=== PATIENT | male | born 1940 | race Two or more races ===

== ENCOUNTER 2020-09-25 14:34 | Emergency (ER) | payer OTHER ==
[~2020-09-25] VITALS: Ht 170.2 cm; Wt 54.4 kg
[2020-09-25] MEDS ORDERED: ACETAMINOPHEN650 M2 PO (21:22)
== END 2020-09-25 22:44 | disposition home or self-care (01) ==
LOC: ER 14:34
DX: S00.83XA Contusion of other part of head, initial encounter (principal); S30.0XXA Contusion of lower back and pelvis, initial encounter; M54.2 Cervicalgia; R07.89 Other chest pain; G45.8 Other transient cerebral ischemic attacks and related syndromes; W18.09XA Striking against other object with subsequent fall, initial encounter; Y93.89 Activity, other specified; Y92.89 Other specified places as the place of occurrence of the external cause; Y99.8 Other external cause status

== ENCOUNTER 2020-10-13 13:35 | Emergency (ER) | payer OTHER ==
[~2020-10-13] VITALS: Ht 167.6 cm; Wt 63.5 kg
[~2020-10-13 13:35] MED LIST: ACETAMINOPHEN650 M2 PO
[2020-10-13] MEDS ORDERED: INBRIJA42 MG (13:58)
[2020-10-13] MEDS ORDERED: LIPITOR80 MG (13:59)
[2020-10-13] MEDS ORDERED: AMLODIPINE-OLM1 EAC1 (14:00)
[2020-10-13] MEDS ORDERED: PLAVIX75 MG (14:00)
[2020-10-13] MEDS ORDERED: GLIMEPIRIDE4 MG (14:00)
[2020-10-13] MEDS ORDERED: COZAAR25 MG (14:01)
[2020-10-13] MEDS ORDERED: DICLOFENAC SODI50 MG PO (15:38)
[2020-10-13] MEDS ORDERED: MUPIROCIN1 G1 TOP (15:38)
== END 2020-10-13 17:11 | disposition home or self-care (01) ==
LOC: ER 13:35
DX: S93.491A Sprain of other ligament of right ankle, initial encounter (principal); S80.211A Abrasion, right knee, initial encounter; S60.811A Abrasion of right wrist, initial encounter; S70.01XA Contusion of right hip, initial encounter; W18.09XA Striking against other object with subsequent fall, initial encounter; Y93.89 Activity, other specified; Y92.018 Other place in single-family (private) house as the place of occurrence of the external cause; Y99.8 Other external cause status

== ENCOUNTER 2020-11-01 03:09 | Inpatient (IN) | payer OTHER ==
[~2020-11-01] VITALS: Ht 165.1 cm; Wt 54.4 kg
[~2020-11-01 03:09] MED LIST changes: +AMLODIPINE-OLM1 EAC1 PO; +COZAAR25 MG PO; +DICLOFENAC SODI50 MG PO; +GLIMEPIRIDE4 MG PO; +INBRIJA42 MG PO; +LIPITOR80 MG PO; +MUPIROCIN1 G1 TOP; +PLAVIX75 MG PO
--- NOTE | 2020-11-01 03:30 | NUR ---
0325 SE RECIBE PACIENTE LETARGICO CON DIFICULTAD RESPIRATORIA NOTORIA, RETRAYENDO ABDOMINAL, PALIDO Y SATURANDO OXIGENO MANUAL ENTRE 90-92%. SE CONECTO A MONITOR CARDIACO Y OXIMETRIA DE PULSO. DR. GEORGE EVALUO A PACIENTE. SE REALIZA CANALIZACIONES BAJO MEDIDAS ASEPTICAS EN BRAZO DERECHO POR MR. GALE. SE REALIZARON MUESTRAS DE LABORATORIO BAJO MEDIDAS. PERSONAL DE TERAPIA RESPIRATORIA LE REALIZO ABG A PACIENTE. LUEGO DE RESULTADOS MEDICO ORDENO COLOCAR NON REBREATHING MASK AL 100%. SE COLOCO LA MISMA POR EL PERSONAL DE TERAPIA RESPIRATORIA. PACIENTE CON HIPOTENSION 90/40MMHG, MEDICO ORDENO ADMINISTRAR PUSH DE 0.9 NSS DE 250ML Y LUEGO CONTINUAR CON ASHLYN 0.9 NSS DE 1,OOOML BAJANDO A 150ML/HR. 0330 DEBIDO A QUE LAS PRESIONES NO MEJORABAN MANUAL 90/35MMHG MEDICO DECIDE AMDINITRAR DRIP DE LEVOPHED 4MG/250ML D5W A BAJAR A 10ML/HR. SE ADMINISTRA EL MISMO.
--- NOTE | 2020-11-01 03:33 | NUR ---
SE RECIBE PTE EN ESTADO ESTUPOROSO EN COMPANIA DE NG HIJA QUIEN REFIERE QUE EL PTE SE ENCUENTRA INAPETENTE E HIPOACTIVO DESDE HACE VARIOS [place]MAN SHAKIR QUE EN EL SAMUEL DE HOY EMPEORO. SE OBSERVA A PTE CLINICAMENTE ENFERMO, EN ESTADO DE CAQUEXIA, CON DIFICULTAD RESPIRATORA (RESPIRACIONES ABDOMINALES) Y CON TEMPERATURA DE 101.0.
--- NOTE | 2020-11-01 04:45 | NUR ---
0340 SE AUMENTO DRIP DE LEVOPHED A 14ML/HR POR BP MANUAL 90/30MMHG. 0415 SE REALIZO CULTIVO DE DEDE ORDENADO POR BAJO MEDIDAS ASEPTICAS. SE REALIZO CAMBIO DE PANAL, PACIENTE CON EVACUACION PASTOSA CATRACHO [facility]. SE INSERTO SONDA URINARIA BAJO MEDIDAS ESTERILES PACIENTE ELIMINO 75ML/HR COLOR AMARILLO. SE AUMENTO DRIP DE LEVOPHED DEBIDO A QUE EL PACIENTE TIENE BP MANUAL EN 100/25MMHG. SE REALIZO OCCULT BLOOD BAJO MEDIDAS ASEPTICAS. 0445 SE REALIZO MUESTRA DE CULTIVO DE DEDE BAJO MEDIDAS ASETPICAS. SE ADMINISTRO MEDICA MEDICAMENTO ORDENADO POR . 0525 SE REALIZO CULTIVO DE ULCERA DE PIE DERECHO. SE OBSERVA HARVEY ULCERAS EN PIE DERECHO. SE COLOCAN GASAS EN LAS MISMAS PORQUE ESTAN SUPURANDO. PACIENTE TIENE AREA DE PRESION EN MONTY DE PIE SAMIRA Y CICATRIZ EN AREA SACRAL POR ULCERA. SE OBSERVA ABRACION EN PIERNA DERECHA. SE MANTIENE BAJO OBSERVACION POR CAMBIOS SIGNIFICATIVOS.
--- NOTE | 2020-11-01 08:04 | NUR ---
0700 SE RECIBE PACIENTE ESTUPOROSO CON RESPUESTA A ESTIMULO DE DOLOR, NO RESPONDE A LLAMADO EN LA UNIDAD DE CRITICO CONECTAD A MONITOR CARDIACO CON RITMO CARDIACO REGULAR HR 88 LAT/MIN, OXIMETRIA DE PULSO AL MOMENTO CAPTURANDO 100% Y ASISTIDO POR NON-REBREATHING MASK AL 100%. PACIENTE SE OBSERVA PRESION EN EL AREA SACRAL, ULCERA EN MONTY Y 5TO DEDO PIE RT. SE OBSERVA IVF'S PATENTE MERI DE EDEMA Y ENROJECIMIENTO BAJANDO UN LEVOPHED 4MG/250ML @ 30ML/HR Y .9NSS @ 75ML/HR. PENDIENTE A DISPONIBILIDAD DE 4 U PRBC'S REQUISADAS EN BANCO DE DEDE AUXILIO MUTUO. PACIENTE CON REACCION PUPILAR EN AMBOS OJOS. SE PALPA ABDOMEN BLANDO Y DEPRESIBLE. SONDA URINARIA PATENTE EL CUAL DRENA ORINA COLOR AMARILLO INTENSO. PENDIENTE CONSULTA CON DR. CARMEN OSORIO Y SERVICIOS SOCIALES. SE MANTIENE BAJO OBSERVACION POR CAMBIOS SIGNIFICATIVOS. 0800 SE TITULA LEVOPHED 4MG/250ML @ 4ML/HR.
== END 2020-11-14 18:26 | disposition left against medical advice (07) | DRG 871 ==
LOC: ER 03:09 → SURH 10:12 → ICU-2 10:12 → MEDI 11-09 16:22 → SURH 11-09 17:02
PROVIDERS: ADMIT Internal Medicine; ATTEND Internal Medicine
PROC: 4A033R1 Measurement of Arterial Saturation, Peripheral, Percutaneous Approach (ICD-10-PCS; 2020-11-01)
PROC: 30233N1 Transfusion of Nonautologous Red Blood Cells into Peripheral Vein, Percutaneous Approach (ICD-10-PCS; 2020-11-01)
PROC: B54DZZZ Ultrasonography of Bilateral Lower Extremity Veins (ICD-10-PCS; 2020-11-01)
PROC: BW28ZZZ Computerized Tomography (CT Scan) of Head (ICD-10-PCS; 2020-11-02)
PROC: 02HV33Z Insertion of Infusion Device into Superior Vena Cava, Percutaneous Approach (ICD-10-PCS; 2020-11-02)
PROC: B24BZZZ Ultrasonography of Heart with Aorta (ICD-10-PCS; 2020-11-03)
PROC: 4A12X4Z Monitoring of Cardiac Electrical Activity, External Approach (ICD-10-PCS; principal; 2020-11-09)
DX: A41.9 Sepsis, unspecified organism (principal); R57.1 Hypovolemic shock; E43 Unspecified severe protein-calorie malnutrition; I21.A1 Myocardial infarction type 2; J69.0 Pneumonitis due to inhalation of food and vomit; D62 Acute posthemorrhagic anemia; G93.1 Anoxic brain damage, not elsewhere classified; E86.0 Dehydration; I25.10 Atherosclerotic heart disease of native coronary artery without angina pectoris; Z95.1 Presence of aortocoronary bypass graft; Z74.01 Bed confinement status; G20 Parkinson's disease; E11.65 Type 2 diabetes mellitus with hyperglycemia; E87.5 Hyperkalemia; Z85.46 Personal history of malignant neoplasm of prostate; Z20.822 Contact with and (suspected) exposure to COVID-19; L89.621 Pressure ulcer of left heel, stage 1; F02.80 Dementia in other diseases classified elsewhere, unspecified severity, without behavioral disturbance, psychotic disturbance, mood disturbance, and anxiety